=== PATIENT | female | born 1975 | race Caucasian/White ===

== ENCOUNTER 2017-06-04 14:39 | Emergency (ER) | payer OTHER ==
[2017-06-04 14:57] VITALS: BP 111/75; PULSE 60; TEMP 98.6; BMI 30.9
[2017-06-04] MEDS ORDERED: ALBUTEROL SO4 2.5/IPRATROPIUM 0.5 INH SOL 3 ML VIAL.NEB. NEB ONE ×4 (15:32→16:33)
--- NOTE | 2017-06-04 15:35 | PDOC ---
History of Present Illness - General History Source: Patient Exam Limitations: No Limitations - History of Present Illness Initial Comments: 06/04/17 16:51 The patient is a 42 year old female with a past significant medical history of irregular menses (on oral contraceptives, discontinued hormones 6 months ago), who presents to the emergency department with frequent coughing and chest tightness for several days. She reports a recent diagnosis of asthma from an urgent care center. She denies any laboratory or pulmonary function evaluations at the time during her urgent care visit. She reports anxiety symptoms in the past. She denies any diagnosis for anxiety. She denies any fever, chills, shortness of breath. She denies any headache, nausea, vomiting, or diarrhea. She denies any alcohol use or smoking. Family history and social history is non contributory. <Yandy Wylie - Last Filed: 06/04/17 16:51> <Ted Fletcher - Last Filed: 06/04/17 18:06> - General Chief Complaint: Asthma Stated Complaint: COUGH,SOB Time Seen by Provider: 06/04/17 14:53 Past History <Yandy Wylie - Last Filed: 06/04/17 16:51> - Past Medical History Anemia: No Asthma: No Cancer: No Cardiac Disorders: No CVA: No COPD: No CHF: No Dementia: No Diabetes: No GI Disorders: No Disorders: No HTN: No Hypercholesterolemia: No Liver Disease: No Seizures: No Thyroid Disease: No - Suicide/Smoking/Psychosocial Hx Smoking Status: No Smoking History: Never smoked Have you smoked in the past 12 months: No Number of Cigarettes Smoked Daily: 0 Information on smoking cessation initiated: No Hx Alcohol Use: Yes (occas) Drug/Substance Use Hx: No Substance Use Type: None Hx Substance Use Treatment: No <Ted Fletcher - Last Filed: 06/04/17 18:06> - Past Medical History Allergies/Adverse Reactions: Allergies Allergy/AdvReac Type Severity Reaction Status Date / Time No Known Drug Allergies Allergy Unknown Verified 06/04/17 14:47 Home Medications: Ambulatory Orders Azithromycin [Zithromax 250mg Tablets -] 250 mg PO DAILY 06/04/17 Budesonide/Formeterol Fumarate [SYMBICORT 160/4.5mcg -] 1 inh PO BID 06/04/17 Guaifenesin AC [Robitussin-AC] 1 - 2 tsp PO Q4HWA PRN #120 ml MDD 8 06/04/17 Review of Systems - Review of Systems Able to Perform ROS?: Yes Comments:: 06/04/17 17:01 CONSTITUTIONAL: Absent: fever, no chills, no fatigue EYES: Absent: visual changes ENT: Absent: ear pain, no sore throat CARDIOVASCULAR: Absent: chest pain, no palpitations RESPIRATORY: Present: Chest tightness and coughing Absent: no SOB GI: Absent: abdominal pain, no nausea, no vomiting, no constipation, no diarrhea GENITOURINARY: Absent: dysuria, no frequency, no hematuria MUSKULOSKELETAL: Absent: back pain, no arthralgia, no myalgia SKIN: Absent: rash NEURO: Absent: headache All Other Systems: Reviewed and Negative <Yandy Wylie - Last Filed: 06/04/17 16:51> *Physical Exam - Vital Signs Last Vital Signs Temp Pulse Resp BP Pulse Ox 98.6 F 60 20 111/75 100 06/04/17 14:46 06/04/17 14:46 06/04/17 14:46 06/04/17 14:46 06/04/17 14:46 - Physical Exam Comments: 06/04/17 16:56 GENERAL: Appears somewhat anxious and hyperventillating with no acute respiratory distress, oxygen saturation is 100% room air, well-nourished. No apparent distress. HEENT: Normocephalic, atraumatic. PERRL, EOM intact. CARDIOVASCULAR: Normal S1, S2. Regular rate and rhythm. PULMONARY: Clear to auscultation bilaterally. ABDOMEN: Soft, non-distended, non-tender. EXTREMITIES: Normal ROM in all four extremities. No gross deformities. SKIN: Warm, dry. No rash NEUROLOGICAL: No focal neurological deficits. <Yandy Wylie - Last Filed: 06/04/17 16:51> - Vital Signs Last Vital Signs Temp Pulse Resp BP Pulse Ox 98.6 F 60 20 111/75 100 06/04/17 14:46 06/04/17 14:46 06/04/17 14:46 06/04/17 14:46 06/04/17 14:46 <Ted Fletcher - Last Filed: 06/04/17 18:06> ED Treatment Course - Medications Given in the ED: ED Medications Discontinued Medications Generic Name Dose Route Start Last Admin Trade Name Marcie PRN Reason Stop Dose Admin Albuterol/Ipratropium 1 amp 06/04/17 15:34 06/04/17 15:39 Duoneb - NEB 06/04/17 15:35 1 amp ONCE ONE Administration Albuterol/Ipratropium 1 amp 06/04/17 16:30 06/04/17 16:30 Duoneb - NEB 06/04/17 16:31 1 amp NOW ONE Administration Albuterol/Ipratropium 1 amp 06/04/17 16:33 06/04/17 16:34 Duoneb - NEB 06/04/17 16:34 1 amp NOW ONE Administration <Yandy Wylie - Last Filed: 06/04/17 16:51> Medical Decision Making - Medical Decision Making 06/04/17 16:23 Respiratory rate 20 and unlabored, O2 saturation 100% on room air, breath sounds clear. The patient appears anxious, breathing deeply and irregularly, without apparent respiratory distress, and symptoms may be predominantly due to anxiety. Nebulizer treatment was undertaken because of a history of asthma, and although the patient states she feels better, there is no change in her exam. She is on her fifth day of azithromycin and has been prescribed inhaled corticosteroids by her primary physician, which she is using via inhaler. She was only diagnosed a few weeks ago with asthma by an urgent care center, and the diagnosis is therefore questionable. 06/04/17 18:04 Patient's respiratory rate and O2 saturation remains normal. However, she is less anxious and is not hyperventilating at present. Cough suppressant is prescribed. She is fully ambulatory and in no distress respiratory or otherwise at time of discharge to follow-up with her primary care physician. It was recommended that she see a lung specialist for further diagnosis and treatment, and she is aware that her recent asthma diagnosis is questionable injured verified <Ted Fletcher - Last Filed: 06/04/17 18:06> *DC/Admit/Observation/Transfer - Attestations Scribe Attestion: 06/04/17 16:57 Documentation prepared by Yandy Wylie, acting as medical translator for Ted Kong MD. <Yandy Wylie - Last Filed: 06/04/17 16:51> - Discharge Dispostion Admit: No <Ted Fletcher - Last Filed: 06/04/17 18:06> Diagnosis at time of Disposition: Bronchitis - Discharge Dispostion Disposition: HOME Condition at time of disposition: Stable - Prescriptions Prescriptions: Guaifenesin AC [Robitussin-AC] 1 - 2 tsp PO Q4HWA PRN #120 ml MDD 8 PRN Reason: Cough - Patient Instructions Printed Discharge Instructions: DI for Acute Bronchitis Additional Instructions: Continue antibiotics. Use cough medication as directed. Return to ER if there is high fever, chest pain, or increased shortness of breath. Otherwise follow- up with your primary physician in 2-3 days. - Post Discharge Activity Forms/Work/School Notes: Back to Work
== END 2017-06-04 17:19 | disposition home or self-care (01) ==
LOC: FER 14:39
PROC: 3E0F7GC Introduction of Other Therapeutic Substance into Respiratory Tract, Via Natural or Artificial Opening (ICD-10-PCS; principal; 2017-06-04)
DX: J40 Bronchitis, not specified as acute or chronic (principal)
CPT/HCPCS: 99281-25

== ENCOUNTER 2017-09-17 17:46 | Emergency (ER) | payer OTHER ==
[2017-09-17 17:56] VITALS: BP 112/74; PULSE 62; TEMP 98.5; BMI 31.8
--- NOTE | 2017-09-17 18:14 | PDOC ---
History of Present Illness - General Chief Complaint: Chest Pain Stated Complaint: CHEST PAIN Time Seen by Provider: 09/17/17 17:51 - History of Present Illness Initial Comments: 09/17/17 18:18 "Patient is a 44F, with PMHx of PCOS, pre-diabetic, who presents today with 1 week of intermittent chest pain. Patient states that about 1 week ago she began experiencing occasional pressure-like pain in her chest. The pain is migratory, moving from the left side to the right side of her chest. It is not exertional and not pleuritic. It typically lasts for approximately 5 mins before resolving spontaneously. States the pain is worse with palpation of the area and certain movements. She took an aspirin yesterday and states that it helped somewhat. She did not take an aspirin today. Pt denies leg swelling, recent travel, or h/ o DVT but is currently on control. Pt denies F/C/cough. Denies SOB. Family Hx: Grandmother ( of heart attack @ 56) Asthma(daughter, sister) Social Hx: Denies smoking. Past History - Past Medical History Allergies/Adverse Reactions: Allergies Allergy/AdvReac Type Severity Reaction Status Date / Time No Known Drug Allergies Allergy Unknown Verified 09/17/17 17:47 Home Medications: Ambulatory Orders Metformin HCl 500 mg PO DAILY 09/17/17 Norethindrone AC-Eth Estradiol [Junel] 1 each PO DAILY 09/17/17 Spironolactone [Aldactone] 25 mg PO DAILY 09/17/17 Anemia: No Asthma: No Cancer: No Cardiac Disorders: No CVA: No COPD: No CHF: No Dementia: No (PRE DIABETIC) Diabetes: No GI Disorders: No Disorders: No HTN: No Hypercholesterolemia: No Liver Disease: No Seizures: No Thyroid Disease: No Other medical history: PCOS - Surgical History Cholecystectomy: Yes - Suicide/Smoking/Psychosocial Hx Smoking Status: No Smoking History: Never smoked Have you smoked in the past 12 months: No Number of Cigarettes Smoked Daily: 0 Hx Alcohol Use: Yes Drug/Substance Use Hx: No Substance Use Type: Alcohol Hx Substance Use Treatment: No Cardiac Specific PMH - Complaint Specific PMHX Pacemaker: No Review of Systems - Review of Systems Comments:: 09/17/17 18:20 """GENERAL/CONSTITUTIONAL: No fever or chills. No weakness. HEAD, EYES, EARS, NOSE AND THROAT: No change in vision. No ear pain or discharge. No sore throat. CARDIOVASCULAR: +chest pain. No shortness of breath. RESPIRATORY: No cough, wheezing, or hemoptysis. GASTROINTESTINAL: No nausea, vomiting, diarrhea or constipation. GENITOURINARY: No dysuria, frequency, or change in urination. MUSCULOSKELETAL: No joint or muscle swelling or pain. No neck or back pain. SKIN: No rash NEUROLOGIC: No headache, vertigo, loss of consciousness, or change in strength/ sensation. ENDOCRINE: No increased thirst. No abnormal weight change. HEMATOLOGIC/LYMPHATIC: No anemia, easy bleeding, or history of blood clots. ALLERGIC/IMMUNOLOGIC: No hives or skin allergy. """ *Physical Exam - Vital Signs Last Vital Signs Temp Pulse Resp BP Pulse Ox 98.5 F 62 16 112/74 100 09/17/17 17:47 09/17/17 17:47 09/17/17 17:47 09/17/17 17:47 09/17/17 17:47 - Physical Exam Comments: 09/17/17 18:21 "GENERAL: Awake, alert, and fully oriented, in no acute distress. HEAD: No signs of trauma EYES: PERRLA, EOMI, sclera anicteric, conjunctiva clear ENT: Auricles normal inspection, hearing grossly normal, nares patent, oropharynx clear without exudates. Moist mucosa NECK: Nontender, no stepoffs, Normal ROM, supple, no lymphadenopathy, JVD, or masses LUNGS: Breath sounds equal, clear to auscultation bilaterally. No wheezes, and no crackles HEART: Regular rate and rhythm, normal S1 and S2, no murmurs, rubs or gallops CHEST: + anterior chest wall tender to palpation ABDOMEN: Soft, nontender, normoactive bowel sounds. No guarding, no rebound. No masses EXTREMITIES: Normal range of motion, no edema. No clubbing or cyanosis. No cords, erythema, or tenderness NEUROLOGICAL: Cranial nerves II through XII intact. 5/5 strength and sensation in all extremities, Normal speech, normal gait, normal cerebellar function SKIN: Warm, Dry, normal turgor, no rashes or lesions noted. " Heart Score/ECG Review - History History: Slightly suspicious - Electrocardiogram EKG: Normal - Age Age: </= 45 - Risk Factors Risk Factors Heart Score: Yes Hx Hypercholesterolemia, Yes Hx Diabetes, Yes Positive family hx of cardiac disease Based on the list above the patient has:: >/=3 risk factors or Hx atherosclerotic disease - Troponin Troponin: </= normal limit - Score Heart Score - Total: 2 - ECG Impressions Comment:: 09/17/17 18:22 NSR, no JEFFREY/STDs, no TWIs, axis wnl, intervals wnl, rate 65 Moderate Sedation - Procedure Monitoring Vital Signs: Vital Signs Temp Pulse Resp BP Pulse Ox 98.5 F 62 16 112/74 100 09/17/17 17:47 09/17/17 17:47 09/17/17 17:47 09/17/17 17:47 09/17/17 17:47 ED Treatment Course - LABORATORY CBC & Chemistry Diagram: 09/17/17 18:10 09/17/17 18:10 - ADDITIONAL ORDERS Additional order review: 09/17/17 18:10 RBC 4.38 MCV 87.1 MCHC 34.8 RDW 11.6 MPV 7.9 Neutrophils % 63.7 Lymphocytes % 26.9 Monocytes % 7.1 Eosinophils % 1.5 Basophils % 0.8 - RADIOLOGY Radiology Studies Ordered: Category Date Time Status CHEST PA & LAT [RAD] Stat Radiology 09/17/17 18:01 Completed Medical Decision Making - Medical Decision Making 09/17/17 18:22 42 F with atypical chest pain. ACS very unlikely as pt with normal EKG. PE is unlikely as pt with normal vitals, no clinical signs of DVT. However, given that pt is on OCPs, will d-dimer to r/o PE. Pain more likely msk in etiology given reproducibility with palpation and movement. - Labs, trop, ddimer - CXR - Tylenol Pt signed out to oncoming attending at 7PM, pending labs, XR, and re-evaluation. *DC/Admit/Observation/Transfer Diagnosis at time of Disposition: Atypical chest pain - Discharge Dispostion Disposition: HOME Condition at time of disposition: Stable - Referrals Referrals: Faustino Staley [Primary Care Provider] - - Patient Instructions Printed Discharge Instructions: DI for Atypical Chest Pain Additional Instructions: Your workup was all negative including a normal cardiogram and the blood work. It is important that you follow-up with your doctor next week. Return to the emergency department immediately with ANY new, persistent or worsening symptoms. Continue any medications as previously prescribed by your physician. . Please make sure your doctor reviews the results of your emergency evaluation. Thank you for coming to the Emergency Department today for your care. It was a pleasure to see you today. Please note that your evaluation is INCOMPLETE until you follow-up with your doctor. - Post Discharge Activity - Attestations Physician Attestion: 09/20/17 23:54 I, Dr. Pancho Leal MD, attest that this document has been prepared under my direction and personally reviewed by me in its entirety. I further attest, that it accurately reflects all work, treatment, procedures and medical decision -making performed by me.
[2017-09-17 18:31] LABS: BASO % 0.8 % (0-2.0); EOS % 1.5 % (0-4.5); HEMATOCRIT 38.2 % (32.4-45.2); HEMOGLOBIN 13.3 GM/dl (10.7-15.3); LYMPH % 26.9 % (8-40); MCH 30.3 pg (25.7-33.7); MCHC 34.8 g/dl (32.0-36.0); MEAN CELL VOLUME 87.1 fl (80-96); MEAN PLT VOLUME 7.9 fl (7.5-11.1); MONO % 7.1 % (3.8-10.2); NEUT % 63.7 % (42.8-82.8); PLATELET COUNT 424 K/MM3 (134-434); RBC 4.38 M/mm3 (3.60-5.2); RDW 11.6 % (11.6-15.6); WHITE BLOOD COUNT 10.1 K/mm3 (4.0-10.8)
[2017-09-17 18:40] LABS: ALK PHOS 48 U/L (32-92); ANION GAP 7 (8-16); BLOOD UREA NITROGEN 11 mg/dl (7-18); CALCIUM 9.4 mg/dl (8.4-10.2); CHLORIDE 100 mmol/L (98-107); CO2 28 mmol/L (22-28); GLUCOSE,RANDOM 106 mg/dl (74-106); POTASSIUM 3.9 mmol/L (3.5-5.1); SGOT/AST 18 U/L (10-42); SGPT/ALT 18 U/L (10-40); SODIUM 135 mmol/L (136-145); TOT PROT 7.4 g/dl (6.4-8.3)
[2017-09-17 19:01] LABS: CREATININE 0.8 mg/dl (0.6-1.3)
--- NOTE | 2017-09-17 19:06 | PDOC ---
*Physical Exam - Vital Signs Last Vital Signs Temp Pulse Resp BP Pulse Ox 98.5 F 62 16 112/74 100 09/17/17 17:47 09/17/17 17:47 09/17/17 17:47 09/17/17 17:47 09/17/17 17:47 ED Treatment Course - LABORATORY CBC & Chemistry Diagram: 09/17/17 18:10 09/17/17 18:10 - ADDITIONAL ORDERS Additional order review: Laboratory Results 09/17/17 09/17/17 09/17/17 18:10 18:10 18:02 Sodium 135 L Potassium 3.9 Chloride 100 Carbon Dioxide 28 Anion Gap 7 L BUN 11 Creat Clearance w eGFR > 60 Random Glucose 106 Calcium 9.4 AST 18 ALT 18 Alkaline Phosphatase 48 Creatine Kinase 138 Troponin I < 0.03 Total Protein 7.4 Albumin 4.0 Urine HCG, Qual Negative 09/17/17 18:10 RBC 4.38 MCV 87.1 MCHC 34.8 RDW 11.6 MPV 7.9 Neutrophils % 63.7 Lymphocytes % 26.9 Monocytes % 7.1 Eosinophils % 1.5 Basophils % 0.8 Progress Note - Progress Note Progress Note: Care of this patient was transferred to ca from Dr. perrin at 1900 hrs. This is a 42-year-old female with one-week history of atypical chest pain. Patient has no other associated symptoms. Patient's primary risk factor is type 2 diabetes otherwise denies hypertension or high cholesterol. Patient also takes oral contraceptives so a d-dimer is sent as well. Patient's EKG is normal Plan is to follow-up on troponin and d-dimer if normal patient will be discharged and told to follow-up with her doctor D-dimer was not measurable. Troponin was 335 which is within normal limits. Patient's symptoms are unchanged and she remains clinically stable patient discharged home *DC/Admit/Observation/Transfer Diagnosis at time of Disposition: Atypical chest pain - Discharge Dispostion Disposition: HOME Condition at time of disposition: Stable Decision to Admit order: No - Referrals Referrals: Faustino Staley [Primary Care Provider] - - Patient Instructions Printed Discharge Instructions: DI for Atypical Chest Pain Additional Instructions: Your workup was all negative including a normal cardiogram and the blood work. It is important that you follow-up with your doctor next week. Return to the emergency department immediately with ANY new, persistent or worsening symptoms. Continue any medications as previously prescribed by your physician. . Please make sure your doctor reviews the results of your emergency evaluation. Thank you for coming to the Emergency Department today for your care. It was a pleasure to see you today. Please note that your evaluation is INCOMPLETE until you follow-up with your doctor. - Post Discharge Activity
[2017-09-17 19:48] LABS: BILIRUBIN,TOTAL < 0.5 mg/dl (0.2-1.0)
--- NOTE | 2017-09-21 00:57 | EKG ---
Test Reason : Blood Pressure : / mmHG Vent. Rate : 065 BPM Atrial Rate : 065 BPM P-R Int : 120 ms QRS Dur : 074 ms QT Int : 400 ms P-R-T Axes : 046 026 042 degrees QTc Int : 416 ms NORMAL SINUS RHYTHM NORMAL ECG NO PREVIOUS ECGS AVAILABLE Confirmed by DIALLO PEREZ MD ([id number]) on 09/21/2017 12:57:11 AM Referred By: MD [facility] Confirmed By:DIALLO PEREZ MD
== END 2017-09-17 20:44 | disposition home or self-care (01) ==
LOC: FER 17:46
DX: R07.89 Other chest pain (principal); E11.9 Type 2 diabetes mellitus without complications
CPT/HCPCS: 36415; 71046-TC-FY; 80053; 82550; 84484; 84703; 85025; 85379; 93005; 99283-25

== ENCOUNTER 2022-07-02 14:33 | Emergency (ER) | payer OTHER ==
[2022-07-02 15:07] VITALS: TEMP 97.9; BMI 27.4
[2022-07-02] MEDS ORDERED: LACTATED RINGERS SOLUTION 1000 ML INFUS.BAG IV ONE (16:11)
[2022-07-02] MEDS ORDERED: FAMOTIDINE 20 MG/50 ML IVPB 20 MG/50 ML MG IVPB ONE (16:11)
[2022-07-02] MEDS ORDERED: ACETAMINOPHEN 1000 MG/100 ML BAG IVPB ONE (16:11)
[2022-07-02] MEDS ORDERED: SUCRALFATE 1 GM TABLET (FP) PO ONE (16:11)
[2022-07-02] MEDS ORDERED: MAG HYDROX/AL HYDROX/SIMETH -MYLANTA- ORAL SUSPENSION PO ONE (16:11)
[2022-07-02] MEDS ORDERED: ACETAMINOPHEN INJECTION 100 ML IVPB ONE (16:19)
[2022-07-02] MEDS ORDERED: SUCRALFATE 1 GM TABLET (FP) ONE (16:19)
[2022-07-02] MEDS ORDERED: FAMOTIDINE 10 MG/ML VIAL IVPB ONE (16:20)
[2022-07-02] MEDS ORDERED: MAG HYDROX/AL HYDROX/SIMETH 30 ML UNIT-DOSE CUP ONE (16:20)
[2022-07-02 17:10] LABS: BASO % 0.6 % (0-2.0); EOS % 0.6 % (0-4.5); HEMATOCRIT 39.1 % (32.4-45.2); HEMOGLOBIN 13.2 GM/dL (10.7-15.3); LYMPH % 11.9 % (8-40); MCH 30.2 pg (25.7-33.7); MCHC 33.8 g/dl (32.0-36.0); MEAN CELL VOLUME 89.1 fl (80-96); MEAN PLT VOLUME 7.9 fl (7.5-11.1); MONO % 6.7 % (3.8-10.2); NEUT % 80.2 % (42.8-82.8); PLATELET COUNT 433 10^3/uL (134-434); RBC 4.39 M/mm3 (3.60-5.2); RDW 13.1 % (11.6-15.6); WHITE BLOOD COUNT 14.7 K/mm3 (4.0-10.0)
[2022-07-02 17:34] LABS: ALBUMIN 4.3 g/dl (3.4-5.0); BLOOD UREA NITROGEN 12.7 mg/dL (7-18); CALCIUM 9.5 mg/dL (8.5-10.1)
[2022-07-02 17:37] LABS: CREATININE 0.9 mg/dL (0.55-1.3)
[2022-07-02 17:39] LABS: BILIRUBIN,TOTAL 0.5 mg/dL (0.2-1); TOT PROT 7.7 g/dl (6.4-8.2)
[2022-07-02 19:20] VITALS: BP 115/57; PULSE 72; RESP 18
== END 2022-07-02 19:20 | disposition home or self-care (01) ==
LOC: JER 14:33
PROC: 3E0333Z Introduction of Anti-inflammatory into Peripheral Vein, Percutaneous Approach (ICD-10-PCS; principal; 2022-07-02)
PROC: 3E033GC Introduction of Other Therapeutic Substance into Peripheral Vein, Percutaneous Approach (ICD-10-PCS; 2022-07-02)
DX: R10.13 Epigastric pain (principal); R19.7 Diarrhea, unspecified
CPT/HCPCS: 0241U-QW; 36415; 80053; 83690; 84484; 84703; 85025; 93005; 93010; 99284-25